=== PATIENT | male | born 1990 | race Caucasian/White ===

== ENCOUNTER 2017-05-11 17:22 | Emergency (ER) | payer OTHER ==
[~2017-05-11] VITALS: Ht 195.6 cm; Wt 136.1 kg
[~2017-05-11 17:22] MED LIST: ADVAIR HFA 230M12 GM INH; ADVAIR HFA115 MCG/21 INH; ALBUTEROL2.5 MG/0.5 IH; ALBUTEROL2.5 MG/3 M IH; ALBUTEROL2.5 MG/31 INH; AMOXICILLIN500 M1 PO; AZITHROMYCIN 2250 MG PO; CEFPODOXIME PR200 M1 PO; CEFTIN 250 MG250 MG PO; CHANTIX0.5 MG PO; DUONEB 2.5-0.5 M3 ML INH; FLOVENT HFA 4444 MCG INH; HYDRALAZINE 2525 M1 PO; IBUPROFEN 200200 M1 PO; IBUPROFEN 800800 M1 PO; LEVAQUIN 500 M500 M2 PO; LEVAQUIN 750 M750 MG PO; MEDROLDOSEPACK PO; MUCINEX TA600 MG/TA1 PO; NOHOMEMEDICATIONS; PREDNISONE 10 M10 M1 PO; PREDNISONE 10 M10 MG PO; PREDNISONE 20 M20 M1 PO; PREDNISONE 20 M20 MG PO; PREDNISONE50 MG PO; PRILOSEC 20 MG20 MG PO; PROAIR HFA8.5 GM INH; PROAIR HFA8.5 GM PO; PROAIR RESPICL90 MCG IH; PROVENTIL HFA6.7 G1 INH; PULMICORT0.5 MG/21 INH; SINGULAIR 10 MG10 M1 PO; VENTOLIN HFA 1818 GM INH; ZOLOFT 50 MG TA50 M1 PO
[2017-05-11] MEDS ORDERED: NORCO 5-325 TA1 EACH PO (19:05)
[2017-05-11] MEDS ORDERED: IBUPROFEN 600600 M1 PO (19:05)
[2017-05-11] MEDS ORDERED: FLEXERIL PO (19:05)
[2017-05-11 19:12] VITALS: BP 161/102
== END 2017-05-11 19:12 | disposition home or self-care (01) ==
LOC: M.ERS 17:22
DX: S39.012A Strain of muscle, fascia and tendon of lower back, initial encounter (principal); J45.909 Unspecified asthma, uncomplicated; F41.9 Anxiety disorder, unspecified; F32.9 Major depressive disorder, single episode, unspecified; F17.210 Nicotine dependence, cigarettes, uncomplicated; Z91.010 Allergy to peanuts; X58.XXXA Exposure to other specified factors, initial encounter; Y93.89 Activity, other specified; Y92.89 Other specified places as the place of occurrence of the external cause; Y99.8 Other external cause status

== ENCOUNTER 2017-06-03 17:23 | Emergency (ER) | payer OTHER ==
[~2017-06-03] VITALS: Ht 195.6 cm; Wt 136.1 kg
[~2017-06-03 17:23] MED LIST changes: +FLEXERIL PO; +IBUPROFEN 600600 M1 PO; +NORCO 5-325 TA1 EACH PO
[2017-06-03 17:31] VITALS: BP 153/95
== END 2017-06-03 17:45 | disposition home or self-care (01) ==
LOC: M.ERS 17:23
DX: S09.90XA Unspecified injury of head, initial encounter (principal); J45.909 Unspecified asthma, uncomplicated; Z91.010 Allergy to peanuts; F17.210 Nicotine dependence, cigarettes, uncomplicated; V43.52XA Car driver injured in collision with other type car in traffic accident, initial encounter; Y93.89 Activity, other specified; Y92.411 Interstate highway as the place of occurrence of the external cause; Y99.8 Other external cause status

== ENCOUNTER 2017-12-02 15:10 | Emergency (ER) | payer OTHER ==
[~2017-12-02] VITALS: Ht 195.6 cm; Wt 136.1 kg
[2017-12-02] MEDS ORDERED: PREDNISONE 20 M20 MG PO (15:55)
[2017-12-02] MEDS ORDERED: PROAIR HFA8.5 GM INH (15:55)
[2017-12-02 16:09] VITALS: BP 158/88
== END 2017-12-02 16:11 | disposition home or self-care (01) ==
LOC: M.ERS 15:10
DX: J45.901 Unspecified asthma with (acute) exacerbation (principal); F32.9 Major depressive disorder, single episode, unspecified; F41.9 Anxiety disorder, unspecified; F17.210 Nicotine dependence, cigarettes, uncomplicated; Z91.010 Allergy to peanuts; Z87.01 Personal history of pneumonia (recurrent)

== ENCOUNTER 2017-12-15 16:52 | Emergency (ER) | payer OTHER ==
[~2017-12-15] VITALS: Ht 195.6 cm; Wt 136.1 kg
[2017-12-15] MEDS ORDERED: VENTOLIN HFA 1818 GM INH (17:55)
[2017-12-15] MEDS ORDERED: PREDNISONE50 MG PO (17:55)
[2017-12-15 18:14] VITALS: BP 162/87
[2017-12-16] MEDS ORDERED: ALBUTEROL2.5 MG/31 INH (17:33)
[2017-12-16] MEDS ORDERED: SINGULAIR 10 MG10 M1 PO (17:33)
== END 2017-12-15 18:15 | disposition home or self-care (01) ==
LOC: M.ERS 16:52
DX: J45.901 Unspecified asthma with (acute) exacerbation (principal); F41.9 Anxiety disorder, unspecified; F32.9 Major depressive disorder, single episode, unspecified; F17.210 Nicotine dependence, cigarettes, uncomplicated; Z87.01 Personal history of pneumonia (recurrent); Z91.010 Allergy to peanuts

== ENCOUNTER 2017-12-16 17:14 | Emergency (ER) | payer OTHER ==
[~2017-12-16] VITALS: Ht 190.5 cm; Wt 136.1 kg
[2017-12-16] MEDS ORDERED: SINGULAIR 10 MG10 M1 PO (17:33)
[2017-12-16] MEDS ORDERED: ALBUTEROL2.5 MG/31 INH (17:33)
[2017-12-16 17:43] VITALS: BP 177/100
== END 2017-12-16 17:43 | disposition home or self-care (01) ==
LOC: M.ERS 17:14
DX: J45.901 Unspecified asthma with (acute) exacerbation (principal); F32.9 Major depressive disorder, single episode, unspecified; F41.9 Anxiety disorder, unspecified; F17.210 Nicotine dependence, cigarettes, uncomplicated; Z91.010 Allergy to peanuts

== ENCOUNTER 2018-01-19 18:06 | Emergency (ER) | payer OTHER ==
[~2018-01-19] VITALS: Ht 195.6 cm; Wt 136.1 kg
[2018-01-19] MEDS ORDERED: SINGULAIR 10 MG10 M1 PO (18:21)
[2018-01-19] MEDS ORDERED: CARAFATE 1 GM TA1 GM PO (21:58)
[2018-01-19] MEDS ORDERED: PREDNISONE50 MG PO (21:58)
[2018-01-19] MEDS ORDERED: IPRAT-ALBUT 0.5-3 ML PO (21:58)
[2018-01-19 22:30] VITALS: BP 147/97
== END 2018-01-19 22:35 | disposition home or self-care (01) ==
LOC: M.ERS 18:06
DX: J45.901 Unspecified asthma with (acute) exacerbation (principal); F41.9 Anxiety disorder, unspecified; F32.9 Major depressive disorder, single episode, unspecified; F17.210 Nicotine dependence, cigarettes, uncomplicated; Z87.01 Personal history of pneumonia (recurrent); Z91.010 Allergy to peanuts

== ENCOUNTER 2018-02-01 19:39 | Emergency (ER) | payer OTHER ==
[~2018-02-01] VITALS: Ht 195.6 cm; Wt 136.1 kg
[~2018-02-01 19:39] MED LIST changes: +CARAFATE 1 GM TA1 GM PO; +IPRAT-ALBUT 0.5-3 ML PO
[2018-02-01] MEDS ORDERED: CARAFATE 1 GM TA1 GM PO (20:54)
[2018-02-01] MEDS ORDERED: SINGULAIR 10 MG10 M1 PO (20:54)
[2018-02-01] MEDS ORDERED: ALBUTEROL2.5 MG/31 INH (20:54)
[2018-02-01 21:08] VITALS: BP 137/87
== END 2018-02-01 21:09 | disposition home or self-care (01) ==
LOC: M.ERS 19:39
DX: J45.909 Unspecified asthma, uncomplicated (principal); K29.70 Gastritis, unspecified, without bleeding; F41.9 Anxiety disorder, unspecified; F32.9 Major depressive disorder, single episode, unspecified; F17.210 Nicotine dependence, cigarettes, uncomplicated; Z91.010 Allergy to peanuts; Z87.01 Personal history of pneumonia (recurrent)

== ENCOUNTER 2018-02-12 18:48 | Emergency (ER) | payer OTHER ==
[~2018-02-12] VITALS: Ht 195.6 cm; Wt 136.1 kg
[2018-02-12] MEDS ORDERED: PREDNISONE50 MG PO ×2 (20:38→20:41)
[2018-02-12 21:01] VITALS: BP 129/86
== END 2018-02-12 21:02 | disposition home or self-care (01) ==
LOC: M.ERS 18:48
DX: J45.901 Unspecified asthma with (acute) exacerbation (principal); F41.9 Anxiety disorder, unspecified; F32.9 Major depressive disorder, single episode, unspecified; F17.210 Nicotine dependence, cigarettes, uncomplicated; Z91.010 Allergy to peanuts; Z87.01 Personal history of pneumonia (recurrent)

== ENCOUNTER 2018-03-03 11:53 | Emergency (ER) | payer OTHER ==
[~2018-03-03] VITALS: Ht 195.6 cm; Wt 146.5 kg
[2018-03-03 12:37] LABS: ABSOLUTE EOSINOPHILS 0.4 thou/uL (0.0-0.7); ABSOLUTE MONOCYTES 0.7 thou/uL (0.0-1.2); ABSOLUTE NEUTROPHILS 8.1 thou/uL (1.6-8.1); BASOPHILS 0.4 %; HEMATOCRIT 46.1 % (42.0-52.0); HEMOGLOBIN 15.9 gm/dL (14.0-18.0); LYMPHOCYTES 17.4 %; MCH 30.2 pg (26.0-34.0); MCHC 34.4 g/dL (28.0-37.0); MCV 87.8 fL (80.0-100.0); MONOCYTES 6.4 %; MPV 7.7 fl. (7.2-11.1); NUCLEATED RBCS 0 /100WBC; PLATELET COUNT* 334 thou/uL (150-400); POLYS 71.8 %; RBC 5.25 mil/uL (4.50-6.00); RDW-CV 12.7 % (10.5-14.5); WBC 11.3 thou/uL (4.0-11.0)
[2018-03-03 12:41] LABS: POTASSIUM 4.1 mmol/L (3.5-5.1)
[2018-03-03 12:45] LABS: ALBUMIN 3.8 g/dL (3.4-5.0); TOTAL BILIRUBIN 0.6 mg/dL (<0.1-1.0); TOTAL PROTEIN 7.3 g/dL (6.4-8.2)
[2018-03-03] MEDS ORDERED: ALBUTEROL2.5 MG/0.5 INH (13:01)
[2018-03-03] MEDS ORDERED: MEDROLDOSEPACK PO (13:01)
[2018-03-03 13:17] VITALS: BP 148/102
== END 2018-03-03 13:17 | disposition home or self-care (01) ==
LOC: M.ERS 11:53
PROVIDERS: Emergency Medicine
DX: J45.901 Unspecified asthma with (acute) exacerbation (principal); F32.9 Major depressive disorder, single episode, unspecified; F41.9 Anxiety disorder, unspecified

== ENCOUNTER 2018-03-16 22:07 | Emergency (ER) | payer OTHER ==
[~2018-03-16] VITALS: Ht 182.9 cm; Wt 136.1 kg
[~2018-03-16 22:07] MED LIST changes: +ALBUTEROL2.5 MG/0.5 INH
[2018-03-16] MEDS ORDERED: PREDNISONE50 MG PO (23:29)
[2018-03-16 23:47] VITALS: BP 155/83
== END 2018-03-16 23:49 | disposition home or self-care (01) ==
LOC: M.ERS 22:07
DX: J45.909 Unspecified asthma, uncomplicated (principal); F32.9 Major depressive disorder, single episode, unspecified; F41.9 Anxiety disorder, unspecified; Z87.01 Personal history of pneumonia (recurrent); F17.210 Nicotine dependence, cigarettes, uncomplicated; Z91.010 Allergy to peanuts

== ENCOUNTER 2018-04-04 02:57 | Emergency (ER) | payer OTHER ==
[~2018-04-04] VITALS: Ht 195.6 cm; Wt 136.1 kg
[2018-04-04] MEDS ORDERED: PREDNISONE50 MG PO (03:27)
[2018-04-04] MEDS ORDERED: VENTOLIN HFA 1818 GM INH (03:27)
[2018-04-04 04:21] VITALS: BP 155/76
== END 2018-04-04 04:23 | disposition home or self-care (01) ==
LOC: M.ERS 02:57
DX: J45.901 Unspecified asthma with (acute) exacerbation (principal); F41.9 Anxiety disorder, unspecified; F32.9 Major depressive disorder, single episode, unspecified; F17.210 Nicotine dependence, cigarettes, uncomplicated; Z91.010 Allergy to peanuts; Z87.01 Personal history of pneumonia (recurrent)

== ENCOUNTER 2018-04-27 21:35 | Emergency (ER) | payer OTHER ==
[~2018-04-27] VITALS: Ht 195.6 cm; Wt 136.1 kg
[2018-04-27] MEDS ORDERED: SINGULAIR 10 MG10 M1 (22:04)
[2018-04-27] MEDS ORDERED: PROAIR HFA8.5 GM INH (22:36)
[2018-04-27] MEDS ORDERED: PREDNISONE 20 M20 MG PO (22:36)
[2018-04-27] MEDS ORDERED: ALBUTEROL2.5 MG/31 INH (23:11)
[2018-04-27 23:20] VITALS: BP 139/78
== END 2018-04-27 23:20 | disposition home or self-care (01) ==
LOC: M.ERS 21:35
DX: J45.901 Unspecified asthma with (acute) exacerbation (principal); F32.9 Major depressive disorder, single episode, unspecified; F41.9 Anxiety disorder, unspecified; F17.210 Nicotine dependence, cigarettes, uncomplicated; Z91.010 Allergy to peanuts

== ENCOUNTER 2018-05-11 06:26 | Emergency (ER) | payer OTHER ==
[~2018-05-11] VITALS: Ht 195.6 cm; Wt 136.1 kg
[~2018-05-11 06:26] MED LIST changes: +SINGULAIR 10 MG10 M1
[2018-05-11 07:51] LABS: INFLUENZA A ANTIGEN None Detected (None Detect); INFLUENZA B ANTIGEN None Detected (None Detect)
[2018-05-11] MEDS ORDERED: IPRAT-ALBUT 0.5-3 ML PO ×2 (07:55→07:59)
[2018-05-11] MEDS ORDERED: SPIRIVA18 MCG INH (07:55)
[2018-05-11] MEDS ORDERED: AMOXICILLIN875 MG PO ×2 (07:55→07:59)
[2018-05-11] MEDS ORDERED: PREDNISONE50 MG PO (07:55)
[2018-05-11] MEDS ORDERED: SPIRIVA INH (07:59)
[2018-05-11] MEDS ORDERED: MEDROLDOSEPACK PO (07:59)
[2018-05-11 08:27] VITALS: BP 156/97
== END 2018-05-11 08:28 | disposition home or self-care (01) ==
LOC: M.ERS 06:26
PROVIDERS: Personal Emergency Response Attendant
DX: J45.901 Unspecified asthma with (acute) exacerbation (principal); J06.9 Acute upper respiratory infection, unspecified; F41.9 Anxiety disorder, unspecified; F32.9 Major depressive disorder, single episode, unspecified; F17.210 Nicotine dependence, cigarettes, uncomplicated; Z87.01 Personal history of pneumonia (recurrent); Z91.010 Allergy to peanuts

== ENCOUNTER 2018-06-10 09:48 | Emergency (ER) | payer OTHER ==
[~2018-06-10] VITALS: Ht 195.6 cm; Wt 136.1 kg
[~2018-06-10 09:48] MED LIST changes: +AMOXICILLIN875 MG PO; +SPIRIVA INH; +SPIRIVA18 MCG INH
[2018-06-10 10:34] LABS: HEMOGLOBIN 18.1 gm/dL (14.0-18.0); MCH 30.8 pg (26.0-34.0); MCHC 34.8 g/dL (28.0-37.0); MCV 88.5 fL (80.0-100.0); MPV 7.9 fl. (7.2-11.1); NUCLEATED RBCS 0 /100WBC; PLATELET COUNT* 363 thou/uL (150-400); RBC 5.88 mil/uL (4.50-6.00); RDW-CV 13.1 % (10.5-14.5); WBC 14.4 thou/uL (4.0-11.0)
[2018-06-10 10:43] LABS: CALCIUM 9.1 mg/dL (8.5-10.1); CREATININE 1.4 mg/dL (0.6-1.3); POTASSIUM 4.4 mmol/L (3.5-5.1)
[2018-06-10 10:47] LABS: ALBUMIN 4.1 g/dL (3.4-5.0); TOTAL BILIRUBIN 0.7 mg/dL (<0.1-1.0); TOTAL PROTEIN 7.9 g/dL (6.4-8.2)
[2018-06-10 11:17] LABS: ABSOLUTE EOSINOPHILS 0.3 thou/uL (0.0-0.7); ABSOLUTE LYMPHOCYTES 0.6 thou/uL (0.8-5.3); ABSOLUTE MONOCYTES 0.1 thou/uL (0.0-1.2); ABSOLUTE NEUTROPHILS 13.4 thou/uL (1.6-8.1)
[2018-06-10 11:18] LABS: GIANT PLATELETS RARE; PLATELET ESTIMATE ADEQUATE
[2018-06-10 11:20] LABS: MACROCYTES 1+; POLYCHROMASIA 1+
[2018-06-10 12:20] LABS: URINE BLOOD TRACE (Negative); URINE CLARITY CLEAR; URINE COLOR DARK YELLOW; URINE GLUCOSE-RANDOM NEGATIVE (Negative); URINE KETONES NEGATIVE (Negative); URINE LEUKOCYTES-REFLEX NEGATIVE (Negative); URINE NITRITE-REFLEX NEGATIVE (Negative); URINE PROTEIN TRACE (Negative); URINE SPECIFIC GRAVITY >= 1.030 (1.005-1.030); URINE UROBILINOGEN 0.2 E.U./dl (0.2-1.0)
[2018-06-10 12:26] LABS: ICTOTEST (BILI CONFIRMATORY) Negative (Negative); URINE BILIRUBIN 1+ (Negative)
[2018-06-10] MEDS ORDERED: PROAIR HFA8.5 GM INH (13:19)
[2018-06-10] MEDS ORDERED: ZOFRAN ODT4 MG PO (13:19)
[2018-06-10] MEDS ORDERED: IPRAT-ALBUT 0.5-3 ML INH (13:21)
[2018-06-10 13:41] VITALS: BP 152/73
== END 2018-06-10 13:42 | disposition home or self-care (01) ==
LOC: M.ERS 09:48
PROVIDERS: Physician Assistant
DX: J45.909 Unspecified asthma, uncomplicated (principal); R11.2 Nausea with vomiting, unspecified; F41.9 Anxiety disorder, unspecified; F32.9 Major depressive disorder, single episode, unspecified; F17.210 Nicotine dependence, cigarettes, uncomplicated; Z87.01 Personal history of pneumonia (recurrent); Z91.010 Allergy to peanuts

== ENCOUNTER 2018-08-10 11:07 | Emergency (ER) | payer OTHER ==
[~2018-08-10] VITALS: Ht 195.6 cm; Wt 136.1 kg
[~2018-08-10 11:07] MED LIST changes: +IPRAT-ALBUT 0.5-3 ML INH; +ZOFRAN ODT4 MG PO
[2018-08-10] MEDS ORDERED: VENTOLIN HFA 1818 GM INH (11:56)
[2018-08-10] MEDS ORDERED: ALBUTEROL2.5 MG/31 INH (11:56)
[2018-08-10] MEDS ORDERED: IPRAT-ALBUT 0.5-3 ML INH (11:56)
[2018-08-10] MEDS ORDERED: PREDNISONE50 MG PO (11:56)
[2018-08-10 12:04] VITALS: BP 173/84
== END 2018-08-10 12:05 | disposition home or self-care (01) ==
LOC: M.ERS 11:07
DX: J45.901 Unspecified asthma with (acute) exacerbation (principal); F17.210 Nicotine dependence, cigarettes, uncomplicated; F32.9 Major depressive disorder, single episode, unspecified; F41.9 Anxiety disorder, unspecified; Z91.010 Allergy to peanuts

== ENCOUNTER 2018-08-30 18:03 | Emergency (ER) | payer OTHER ==
[~2018-08-30] VITALS: Ht 195.6 cm; Wt 136.1 kg
[2018-08-30 18:54] LABS: ABSOLUTE BASOPHILS 0.1 thou/uL (0.0-0.2); ABSOLUTE EOSINOPHILS 0.8 thou/uL (0.0-0.7); ABSOLUTE LYMPHOCYTES 2.2 thou/uL (0.8-5.3); ABSOLUTE MONOCYTES 0.8 thou/uL (0.0-1.2); ABSOLUTE NEUTROPHILS 5.6 thou/uL (1.6-8.1); BASOPHILS 0.8 %; EOSINOPHILS 8.1 %; HEMATOCRIT 47.4 % (42.0-52.0); HEMOGLOBIN 16.9 gm/dL (14.0-18.0); LYMPHOCYTES 23.5 %; MCH 31.2 pg (26.0-34.0); MCHC 35.6 g/dL (28.0-37.0); MCV 87.6 fL (80.0-100.0); MONOCYTES 8.1 %; MPV 7.6 fl. (7.2-11.1); NUCLEATED RBCS 0 /100WBC; PLATELET COUNT* 271 thou/uL (150-400); POLYS 59.5 %; RBC 5.41 mil/uL (4.50-6.00); RDW-CV 13.4 % (10.5-14.5); WBC 9.4 thou/uL (4.0-11.0)
[2018-08-30 19:07] LABS: ALBUMIN 3.9 g/dL (3.4-5.0); CALCIUM 8.8 mg/dL (8.5-10.1); CREATININE 0.9 mg/dL (0.6-1.3); POTASSIUM 3.8 mmol/L (3.5-5.1); TOTAL BILIRUBIN 0.5 mg/dL (<0.1-1.0); TOTAL PROTEIN 7.5 g/dL (6.4-8.2)
[2018-08-30] MEDS ORDERED: PREDNISONE 20 M20 MG PO (19:27)
[2018-08-30] MEDS ORDERED: ADVAIR 250-501 EACH INH (19:28)
[2018-08-30 19:51] VITALS: BP 143/86
== END 2018-08-30 19:52 | disposition home or self-care (01) ==
LOC: M.ERS 18:03
PROVIDERS: Nurse Practitioner Family
DX: J45.901 Unspecified asthma with (acute) exacerbation (principal); J45.909 Unspecified asthma, uncomplicated; F41.9 Anxiety disorder, unspecified; F32.9 Major depressive disorder, single episode, unspecified; F17.210 Nicotine dependence, cigarettes, uncomplicated; Z91.010 Allergy to peanuts; Z87.01 Personal history of pneumonia (recurrent)

== ENCOUNTER 2018-10-23 05:31 | Emergency (ER) | payer OTHER ==
[~2018-10-23] VITALS: Ht 195.6 cm; Wt 136.1 kg
[~2018-10-23 05:31] MED LIST changes: +ADVAIR 250-501 EACH INH
[2018-10-23] MEDS ORDERED: VENTOLIN HFA 1818 GM INH (05:45)
[2018-10-23] MEDS ORDERED: PREDNISONE 20 M20 M1 PO (05:45)
[2018-10-23 06:06] VITALS: BP 120/87
== END 2018-10-23 06:06 | disposition home or self-care (01) ==
LOC: M.ERS 05:31
DX: J45.901 Unspecified asthma with (acute) exacerbation (principal); F17.210 Nicotine dependence, cigarettes, uncomplicated; F41.9 Anxiety disorder, unspecified; F32.9 Major depressive disorder, single episode, unspecified; Z91.010 Allergy to peanuts

== ENCOUNTER 2018-12-03 04:00 | Emergency (ER) | payer OTHER ==
[~2018-12-03] VITALS: Ht 195.6 cm; Wt 136.1 kg
[~2018-12-03 04:00] MED LIST changes: +NORCO 7.5-3251 EACH PO
[2018-12-03] MEDS ORDERED: PREDNISONE50 MG PO (04:44)
[2018-12-03 05:07] VITALS: BP 135/95
--- NOTE | 2018-12-03 12:08 | EKG ---
[place] [address] ELECTROCARDIOGRAM REPORT Name: YONG GLASER Room: [facility]#: [id number] Admission: 12/03/18 Attend Phys: Discharge: 12/03/18 Date of : 89 Report #: [id number] THIS REPORT FOR: //name// [facility] ED Test Date: 2018-12-03 Test Time: 04:12:47 Pat Name: YONG GLASER Department: Room: Gender: M Build [employer]: SEAN : 1990 Requested By: Dom Guerrero Order Number: [id number] MD: Chuckie Lafleur Measurements Intervals [place] Rate: 90 P: -6 UT: 150 QRS: -34 QRSD: 114 T: 30 QT: 364 QTc: 446 Interpretive Statements Sinus rhythm Borderline IVCD with LAD Compared to ECG 01/27/2017 16:31:58 Sinus tachycardia no longer present Left-axis deviation no longer present Electronically Signed On 12-03-2018 12:08:30 CDT by Chuckie Lafleur [email or web address] <ELECTRONICALLY SIGNED> By: Chuckie Lafleur MD, [facility] 12/03/18 1208 [id number] 0412 Chuckie Lafleur MD, [facility] /EPI
== END 2018-12-03 05:10 | disposition home or self-care (01) ==
LOC: M.ERS 04:00
DX: J45.901 Unspecified asthma with (acute) exacerbation (principal); F41.9 Anxiety disorder, unspecified; F32.9 Major depressive disorder, single episode, unspecified; F17.210 Nicotine dependence, cigarettes, uncomplicated; Z87.01 Personal history of pneumonia (recurrent); Z91.010 Allergy to peanuts

== ENCOUNTER 2018-12-29 02:17 | Emergency (ER) | payer OTHER ==
[~2018-12-29] VITALS: Ht 195.6 cm; Wt 136.1 kg
[2018-12-29] MEDS ORDERED: ADVAIR HFA 230M12 GM INH (02:26)
[2018-12-29] MEDS ORDERED: HYDROXYZINE HCL25 M2 PO (02:39)
[2018-12-29] MEDS ORDERED: PROAIR HFA8.5 GM INH (02:39)
[2018-12-29 03:24] VITALS: BP 148/90
== END 2018-12-29 03:24 | disposition home or self-care (01) ==
LOC: M.ERS 02:17
DX: J45.901 Unspecified asthma with (acute) exacerbation (principal); F41.9 Anxiety disorder, unspecified; F32.9 Major depressive disorder, single episode, unspecified; F17.210 Nicotine dependence, cigarettes, uncomplicated; Z91.010 Allergy to peanuts

== ENCOUNTER 2019-03-05 00:24 | Emergency (ER) | payer OTHER ==
[~2019-03-05] VITALS: Ht 195.6 cm; Wt 136.1 kg
[~2019-03-05 00:24] MED LIST changes: +HYDROXYZINE HCL25 M2 PO
[2019-03-05] MEDS ORDERED: FLEXERIL PO (02:51)
[2019-03-05] MEDS ORDERED: PERCOCET 7.5-31 EAC1 PO (02:51)
[2019-03-05 03:56] VITALS: BP 180/88
== END 2019-03-05 03:56 | disposition home or self-care (01) ==
LOC: M.ERS 00:24
DX: M54.2 Cervicalgia (principal); M62.838 Other muscle spasm; J45.909 Unspecified asthma, uncomplicated; F41.9 Anxiety disorder, unspecified; F32.9 Major depressive disorder, single episode, unspecified; F17.210 Nicotine dependence, cigarettes, uncomplicated; Z91.010 Allergy to peanuts

== ENCOUNTER 2019-05-16 13:16 | Emergency (ER) | payer OTHER ==
[~2019-05-16] VITALS: Ht 195.6 cm; Wt 136.1 kg
[~2019-05-16 13:16] MED LIST changes: +PERCOCET 7.5-31 EAC1 PO
[2019-05-16] MEDS ORDERED: WELLBUTRIN XL150 MG PO (13:29)
[2019-05-16 14:25] LABS: INFLUENZA A ANTIGEN Negative (Negative); INFLUENZA B ANTIGEN Negative (Negative)
[2019-05-16] MEDS ORDERED: AZITHROMYCIN 2250 MG PO (15:39)
[2019-05-16] MEDS ORDERED: MEDROLDOSEPACK PO (15:39)
[2019-05-16 15:49] VITALS: BP 172/118
== END 2019-05-16 15:50 | disposition home or self-care (01) ==
LOC: M.ERS 13:16
PROVIDERS: Personal Emergency Response Attendant
DX: J45.901 Unspecified asthma with (acute) exacerbation (principal); F17.210 Nicotine dependence, cigarettes, uncomplicated; Z91.010 Allergy to peanuts; Z87.01 Personal history of pneumonia (recurrent)

== ENCOUNTER 2019-06-04 11:21 | Emergency (ER) | payer OTHER ==
[~2019-06-04] VITALS: Ht 195.6 cm; Wt 136.1 kg
[~2019-06-04 11:21] MED LIST changes: +WELLBUTRIN XL150 MG PO
[2019-06-04 11:48] LABS: ABSOLUTE BASOPHILS 0.1 thou/uL (0.0-0.2); ABSOLUTE EOSINOPHILS 0.3 thou/uL (0.0-0.7); ABSOLUTE LYMPHOCYTES 1.9 thou/uL (0.8-5.3); ABSOLUTE MONOCYTES 0.5 thou/uL (0.0-1.2); ABSOLUTE NEUTROPHILS 4.6 thou/uL (1.6-8.1); BASOPHILS 0.8 %; EOSINOPHILS 4.3 %; HEMATOCRIT 44.9 % (42.0-52.0); HEMOGLOBIN 16.1 gm/dL (14.0-18.0); LYMPHOCYTES 26.1 %; MCHC 35.8 g/dL (28.0-37.0); MCV 89.3 fL (80.0-100.0); MPV 7.9 fl. (7.2-11.1); NUCLEATED RBCS 0 /100WBC; PLATELET COUNT* 269 thou/uL (150-400); POLYS 61.8 %; RBC 5.02 mil/uL (4.50-6.00); RDW-CV 12.5 % (10.5-14.5); WBC 7.4 thou/uL (4.0-11.0)
[2019-06-04 11:54] LABS: CALCIUM 8.9 mg/dL (8.5-10.1); CREATININE 0.9 mg/dL (0.6-1.3); POTASSIUM 4.3 mmol/L (3.5-5.1)
[2019-06-04 11:58] LABS: TOTAL BILIRUBIN 0.5 mg/dL (<0.1-1.0); TOTAL PROTEIN 7.3 g/dL (6.4-8.2)
[2019-06-04 12:03] LABS: INFLUENZA A ANTIGEN Negative (Negative); INFLUENZA B ANTIGEN Negative (Negative)
[2019-06-04 12:58] LABS: URINE BILIRUBIN NEGATIVE (Negative); URINE BLOOD NEGATIVE (Negative); URINE CLARITY CLEAR; URINE COLOR YELLOW; URINE GLUCOSE-RANDOM NEGATIVE (Negative); URINE KETONES NEGATIVE (Negative); URINE LEUKOCYTES-REFLEX NEGATIVE (Negative); URINE NITRITE-REFLEX NEGATIVE (Negative); URINE PROTEIN NEGATIVE (Negative); URINE SPECIFIC GRAVITY 1.015 (1.005-1.030)
[2019-06-04] MEDS ORDERED: ONDANSETRON HCL4 M2 PO (13:13)
[2019-06-04] MEDS ORDERED: ALBUTEROL2.5 MG/0.5 INH (13:13)
[2019-06-04] MEDS ORDERED: MEDROLDOSEPACK PO (13:13)
[2019-06-04 13:28] VITALS: BP 158/86
== END 2019-06-04 13:29 | disposition home or self-care (01) ==
LOC: M.ERS 11:21
PROVIDERS: Nurse Practitioner Family
DX: J45.901 Unspecified asthma with (acute) exacerbation (principal); B34.9 Viral infection, unspecified; F17.210 Nicotine dependence, cigarettes, uncomplicated; Z87.01 Personal history of pneumonia (recurrent); Z91.010 Allergy to peanuts

== ENCOUNTER 2019-07-26 12:06 | Emergency (ER) | payer OTHER ==
[~2019-07-26] VITALS: Ht 195.6 cm; Wt 136.1 kg
[~2019-07-26 12:06] MED LIST changes: +ONDANSETRON HCL4 M2 PO
[2019-07-26 12:42] LABS: INFLUENZA A ANTIGEN Negative (Negative); INFLUENZA B ANTIGEN Negative (Negative)
[2019-07-26] MEDS ORDERED: ZPAK PO (13:07)
[2019-07-26] MEDS ORDERED: MEDROLDOSEPACK PO (13:07)
[2019-07-26 13:25] VITALS: BP 167/95
== END 2019-07-26 13:27 | disposition home or self-care (01) ==
LOC: M.ERS 12:06
PROVIDERS: Nurse Practitioner Family
DX: J45.901 Unspecified asthma with (acute) exacerbation (principal); J06.9 Acute upper respiratory infection, unspecified; F17.210 Nicotine dependence, cigarettes, uncomplicated; Z91.010 Allergy to peanuts